=== PATIENT | female | born 1955 | race Caucasian/White ===

== ENCOUNTER 2017-12-05 16:53 | Emergency (ER) | payer BC ==
[2015-08-24 11:50] VITALS: BMI 33.0
[~2017-12-05 16:53] MED LIST: ATIVAN0.5 MG PO; CELEXA40 MG PO; DILAUDID2 MG PO; LEVOXYL125 MCG PO; NORVASC10 MG PO; OMEPRAZOLE40 MG PO; TOPROL XL25 MG PO; VOLTAREN100 GM TOPICAL; ZANTAC150 MG PO
[2017-12-05 17:32] LABS: BASOPHILS 0.3 % (0-2); HEMATOCRIT 40.9 % (36.0-48.0); HEMOGLOBIN 13.3 g/dL (12-16); IMMATURE GRANULOCYTES 0.1 % (0-5); LYMPHOCYTES 17.6 % (15-50); MCH 27.7 pg (26.0-34.0); MCHC 32.5 g/dL (31.0-37.0); MEAN PLATELET VOLUME 9.5 fL (7.4-10.4); MONOCYTES 7.8 % (2-11); NEUTROPHILS 72.2 % (40-80); PLATELET COUNT 158 10x3/uL (130-400); RBC 4.81 10x6/uL (4.00-5.40); RDW 13.3 % (11.5-14.5); WBC 6.9 10x3/uL (4.8-10.8)
[2017-12-05 17:36] LABS: APPEARANCE CLEAR (CLEAR); BILIRUBIN NEGATIVE (NEGATIVE); COLOR ORANGE (YELLOW); GLUCOSE NEGATIVE (NEGATIVE); KETONE NEGATIVE (NEGATIVE); NITRITE NEGATIVE (NEGATIVE); PROTEIN NEGATIVE (NEGATIVE); UROBILINOGEN NORMAL (NORMAL)
[2017-12-05 17:43] LABS: WHITE CELLS - URINE 0-5 /hpf (0-5)
[2017-12-05 17:44] LABS: EPITHELIAL CELLS 0-5 /hpf (0-5)
[2017-12-05 17:45] LABS: BACTERIA FEW /hpf (NONE SEEN)
[2017-12-05 17:52] LABS: ALBUMIN 3.8 g/dL (3.4-5.0); ALKALINE PHOSPHATASE 93 U/L (46-116); ALT (SGPT) 25 U/L (10-68); BILIRUBIN - TOTAL 0.39 mg/dL (0.2-1.3); CALC OSMOLALITY 280 mosm/kg (275-300); CARBON DIOXIDE 28.4 mmol/L (21.0-32.0); CHLORIDE - SERUM 104 mmol/L (98-107); CREATININE - SERUM 0.5 mg/dL (0.6-1.3); GLUCOSE 92 mg/dL (74-106); POTASSIUM - SERUM 3.9 mmol/L (3.5-5.1); PROTEIN - SERUM 6.9 g/dL (6.4-8.2); SODIUM 140 mmol/L (136-145); UREA NITROGEN 18 mg/dL (7-18); eGFR NON AFRICAN AMERICAN > 90 mL/min (90-120)
== END 2017-12-05 18:35 | disposition home or self-care (01) ==
LOC: D.ER 16:53
PROVIDERS: Emergency Medicine
DX: N39.0 Urinary tract infection, site not specified (principal); I10 Essential (primary) hypertension; E03.9 Hypothyroidism, unspecified

== ENCOUNTER → 2018-09-27 13:02 | Outpatient (CLI) | payer BC ==
[2015-08-24 11:50] VITALS: BMI 33.0
== END | disposition home or self-care (01) ==
LOC: D.MRI 13:00
PROVIDERS: ATTEND Orthopaedic Surgery
DX: M54.16 Radiculopathy, lumbar region (principal)

== ENCOUNTER → 2019-02-25 14:43 | Outpatient (CLI) | payer BC ==
[2015-08-24 11:50] VITALS: BMI 33.0
== END | disposition home or self-care (01) ==
LOC: D.US 14:43
PROVIDERS: ATTEND Orthopaedic Surgery
DX: R22.42 Localized swelling, mass and lump, left lower limb (principal)